=== PATIENT | male | born 1975 | race Caucasian/White ===

== ENCOUNTER 2019-08-11 22:24 | Inpatient (IN) | payer BC ==
--- NOTE | 2019-08-11 23:16 | ULT ---
Gallbladder ultrasound: Multiple grayscale images of right upper quadrant obtained according to protocol. INDICATIONS: Right upper quadrant pain. FINDINGS: Images of the gallbladder showed numerous echogenic gallstones. Thickened gallbladder wall with peric holecystic edema. Positive Beckwith's sign. Common duct upper normal caliber. There is a 2 cm echogenic focus in the right lower liver. Technologist states there is a history of h emangioma. There are no comparison studies. Hepatic cyst is identified measuring 2.0 cm. Pancreas is mostly obscured but appears unremarkable as visualized. Right kidney is imaged and appears unremarkable. IMPRESSION: 1. Cholelithiasis. Gallbladder wall is thickened and there is pericholecystic edema. Positive Beckwith' s sign. 2. Echogenic focus in the liver would be consistent with hemangioma according to history. There are n o comparison studies. Hepatic cyst is also noted.
[2019-08-12] MEDS ORDERED: Piperacillin/Tazobactam 3.375 GM VIAL ONE (00:12)
[2019-08-12] MEDS ORDERED: Glycopyrrolate 0.2 MG/ML 5 ML SYRINGE SLOW IVP SCH (00:15)
[2019-08-12] MEDS ORDERED: Ondansetron ODT 4 MG TAB SL PRN (02:23)
[2019-08-12] MEDS ORDERED: Ondansetron PF 4 MG/2 ML Vial IVP PRN ×3 (02:23→16:35)
[2019-08-12] MEDS ORDERED: Morphine 4 MG/ML VIAL SLOW IVP PRN ×2 (02:25→14:24)
[2019-08-12 02:31] VITALS: BMI 27.8
[2019-08-12] MEDS: Morphine 2 MG/ML SYRINGE SLOW IVP PRN ×2 (02:46→08:18)
[2019-08-12] MEDS ORDERED: Acetaminophen 650 MG Suppository PR PRN (10:03)
[2019-08-12] MEDS ORDERED: Ondansetron ODT 4 MG TAB PO PRN (10:03)
--- NOTE | 2019-08-12 10:11 | PDOC.HHP ---
Hospitalist HPI - History of Present Illness Abdominal pain History of Present Illness: Mr. Jefferson is a pleasant 43 year old man who reports a history of IBS x 20 years. States he typically has bouts of abdominal pain managed with hyoscyamine and his diet. He has not had an EGD or colonoscopy before. States the pain this time was more severe and associated with n/v which has never happened. His pain is usually in the epigastric region but yesterday early hours in the morning began having pain in the RUQ as well. He vomited once while en route to the hospital. No further vomiting since. He denies any changes with his stools. Reports noting darker colored urine yesterday morning. Today had trouble emptying his bladder. States he feels as if he has to urinate but only able to urinate some. Per patient bladder scan was done and showed 400 mLs, unclear how long after attempting to empty his bladder. He denies any hematuria or dysuria. Has not had issues with urination before and denies any urinary symptoms in recent days. ED Course: In the ED he had laboratory studies done which showed elevated LFTs and a tbili of 4.8. He had a RUQ US done showing cholelithiasis. Thickening of the gallbladder wall seen with pericholecystic edema and a positive Beckwith's sign. Echogenic focus seen in the liver consistent with hemangioma. A hepatic cyst was present. Consults were placed to GI and General Surgery. He was started on Zosyn. Hospitalist ROS - Review of Systems Constitutional: reports: malaise. denies: fever, chills, sweats, weakness, other Eyes: denies: pain, vision change, conjunctivae inflammation, eyelid inflammation, redness, other ENT: denies: ear pain, ear discharge, nose pain, nose discharge, nose congestion , mouth pain, mouth swelling, throat pain, throat swelling Respiratory: denies: cough, dry, shortness of breath, hemoptysis, SOB with excertion, pleuritic pain, sputum, wheezing Cardiovascular: denies: chest pain, palpitations, orthopnea, paroxysmal noc. dyspnea, edema, light headedness Gastrointestinal: reports: nausea, vomiting, abdominal pain. 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: reports: no pertinent history Gastrointestinal: reports: Irritable bowel disease Heme/Onc: reports: no pertinent history Hepatobiliary: reports: no pertinent history Psych: reports: no pertinent history Musculoskeletal: reports: no pertinent history Rheumatologic: reports: no pertinent history Infectious Disease: reports: no pertinent history ENT: reports: no pertinent history Renal/: reports: no pertinent history Endocrine: reports: no pertinent history Dermatology: reports: no pertinent history - Past Surgical History Past Surgical History: reports: no pertinent history - Family History Family History: reports: no pertinent history - Social History Smoking Status: Never smoker Alcohol: reports: Rare (Has not had any alcohol for the last 2 months.) Drugs: reports: none Living Situation: With Family Activity level: independent ambulation - Exam General Appearance: NAD Eye: PERRL, anicteric sclera ENT: normocephalic atraumatic, no oropharyngeal lesions, dry oral mucosa Neck: supple, symmetric, no JVD, no thyromegaly, no lymphadenopathy Heart: RRR, no murmur, no gallops, no rubs, normal peripheral pulses Respiratory: CTAB, no wheezes, no rales, no ronchi Gastrointestinal: soft, non-distended, normal bowel sounds, tender to palpation (in epigastric region and RUQ, + Arthur sign.) Extremities: no cyanosis, no clubbing, no edema Skin: normal turgor, no lesions, no rashes Neurological: cranial nerve grossly intact Musculoskeletal: normal tone, normal strength, no muscle wasting Psychiatric: normal affect, normal behavior, A&O x 3 Hospitalist Results - Labs Result Diagrams: 08/12/19 10:27 08/12/19 10:27 - Radiology Interpretation US - abdomen Status: report reviewed by ct Hospitalist H&P A/P - Problem (1) Cholecystitis with cholelithiasis Code(s): K80.10 - CALCULUS OF GALLBLADDER W CHRONIC CHOLECYST W/O OBSTRUCTION Status: Acute (2) Abdominal pain Code(s): R10.9 - UNSPECIFIED ABDOMINAL PAIN Status: Acute (3) History of IBS Code(s): Z87.19 - PERSONAL HISTORY OF OTHER DISEASES OF THE DIGESTIVE SYSTEM Status: Chronic (4) Hypokalemia Code(s): E87.6 - HYPOKALEMIA Status: Acute - Plan Plan: Will continue IV Abx. Repeat labs including LFTs. Replace potassium, repeat electrolytes with labs today. Continue NPO. Awaiting GI input (will likely undergo ERCP). Awaiting surgical review as well. DVT prophylaxis with mechanical SCDs. CODE STATUS: FULL. Surrogate decision maker is his Luba Jefferson. ADDENDUM: Labs have come back and are notable for a lipase of 1400. Pain worsening. Patient has pancreatitis, will remain NPO and continue aggressive IV fluids as ordered by GI. Morphine PRN for pain.
[2019-08-12] MEDS: Acetaminophen 325 MG TAB PO PRN (10:24)
[2019-08-12] MEDS ORDERED: Potassium Chloride 20 MEQ in Premix Bag 1 BAG IVPB SCH ×3 (10:30→15:45)
[2019-08-12 10:42] LABS: #Lymphocytes 0.9 thou/uL (1.20-3.40); #Monocytes 1.1 thou/uL (0.11-0.59); #Neutrophils 8.6 thou/uL (1.40-6.50); %Basophils 0.3 % (0.0-1.0); %Eosinophils 0.2 % (0.0-10.0); %Lymphocytes 8.1 % (21.0-51.0); %Monocytes 10.5 % (0.0-10.0); %Neutrophils 80.9 % (42.0-75.0); Hemoglobin 16.8 g/dL (14.0-18.0); Mean Corpuscular HGB CONC 33.5 g/dL (32.0-36.0); Mean Corpuscular Hemoglobin 28.8 pg (27.0-31.0); Mean Corpuscular Volume 85.8 fL (78.0-98.0); Mean Platelet Volume 7.4 fL (7.4-10.4); Platelet Count 191 thou/uL (130-400); RBC Distribution Width 11.8 % (11.5-14.5); Red Blood Cell (RBC) Count 5.85 mill/uL (4.70-6.10); White Blood Cell (WBC) Count 10.6 thou/uL (4.8-10.8)
[2019-08-12] MEDS ORDERED: Sodium Chloride 0.9% 1,000 ML IV SCH ×3 (10:45→13:15)
[2019-08-12 11:00] LABS: Lactic Acid 0.9 mmol/L (0.5-2.2)
[2019-08-12 11:04] LABS: ALT (SGPT) 531 U/L (8-55); AST (SGOT) 268 U/L (5-34); Albumin 4.4 g/dL (3.5-5.0); Alkaline Phosphatase 144 U/L (40-110); Bilirubin, Direct 4.2 mg/dL (0.1-0.3); Bilirubin, Total 6.8 mg/dL (0.2-1.2); Protein, Total 7.4 g/dL (6.0-8.3)
[2019-08-12 11:07] LABS: ALT (SGPT) 542 U/L (8-55); AST (SGOT) 276 U/L (5-34); Albumin 4.5 g/dL (3.5-5.0); Alkaline Phosphatase 142 U/L (40-110); Anion Gap 16 mmol/L (10-20); BUN (Urea Nitrogen) 10 mg/dL (8.9-20.6); Bilirubin, Total 6.9 mg/dL (0.2-1.2); Calc. Creatinine Clearance 121 mL/min (70-130); Calcium 9.5 mg/dL (7.8-10.44); Carbon Dioxide 23 mmol/L (22-29); Chloride 105 mmol/L (98-107); Estimated GFR-MDRD 80; Globulin 2.9 g/dL (2.4-3.5); Glucose 95 mg/dL (70-105); Magnesium 2.1 mg/dL (1.6-2.6); Potassium 3.8 mmol/L (3.5-5.1); Protein, Total 7.4 g/dL (6.0-8.3); Sodium 140 mmol/L (136-145)
[2019-08-12 11:21] LABS: Lipase 1401 U/L (8-78)
[2019-08-12] MEDS: Piperacillin/Tazobactam 3.375 GM in Sodium Chloride 0.9% 100 ML IVPB SCH ×3 (11:45→23:55)
[2019-08-12] MEDS ORDERED: Ketorolac Tromethamine 30 MG/ML VIAL IVP SCH (12:00)
[2019-08-12] MEDS ORDERED: Morphine 2 MG/ML SYRINGE SLOW IVP PRN ×2 (13:19→14:24)
[2019-08-12] MEDS ORDERED: Fentanyl 100 MCG/2 ML VIAL SLOW IVP PRN ×2 (14:35→14:36)
--- NOTE | 2019-08-12 15:24 | CON ---
DATE OF CONSULTATION: 08/12/2019 REQUESTING PHYSICIAN: Dhiraj Beckwith MD HISTORY OF PRESENT ILLNESS: This is a 43-year-old man, who presented to the emergency department yesterday with worsening epigastric right upper quadrant abdominal pain. The patient gives a history of irritable bowel syndrome spanning over 20 years with intermittent episodes of abdominal pain, which usually last 2 to 3 days. The patient was awoken yesterday with severe epigastric to right upper quadrant abdominal pain, this time associated with abdominal bloating, nausea, and vomiting. The pain is quite severe, rated at 10/10. He has never experienced pain this severe. He denies any fevers or chills. PAST MEDICAL HISTORY: Pertinent for irritable bowel syndrome with associated chronic recurrent abdominal pain. PAST SURGICAL HISTORY: He denies any previous surgeries. SOCIAL HISTORY: The patient is . He lives at home with his . 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 He denies any cigarette smoking or illicit drug abuse. Admits to occasional intake of ethanol in very moderate amount. FAMILY HISTORY: Notable for a maternal grandfather with prostate current cancer and paternal grandfather with heart disease. Maternal grandmother has essential hypertension and diabetes mellitus. Both maternal grandmother and maternal aunt had breast carcinoma. Various members of both families have irritable bowel syndrome. He does not recall any member of his extended family with history of inflammatory bowel disease. PREHOSPITALIZATION MEDICATIONS: Includes hyoscyamine, which he takes as needed for irritable bowel syndrome. ALLERGIES: THE PATIENT DENIES ANY KNOWN DRUG ALLERGIES. REVIEW OF SYSTEMS: Ten-point review of systems essentially unremarkable, except as stated in past medical history and chief complaint. PHYSICAL EXAMINATION: GENERAL: Reveals a 43-year-old normally developed man, who is otherwise coherent, interactive, and appears stated age. The patient is alert and oriented x3, appears to be in moderate acute distress secondary to abdominal pain. VITAL SIGNS: Include blood pressure is 162/85, pulse is 87, respiratory rate is 16, temperature is 98.4 degrees Fahrenheit, oxygen saturation is 96% on room air. HEENT: Reveals normocephalic and atraumatic. Pupils are equal, round, reactive to light and accommodation. He has no scleral icterus present. HEART: Reveals regular rate and rhythm. No murmurs or gallops auscultated. LUNGS: Clear to auscultation bilaterally. Breathing, regular and nonlabored. ABDOMEN: Soft with right upper quadrant tenderness to palpation. He has a positive Beckwith sign. Liver and spleen are otherwise nonpalpable below costal margin. NEUROLOGIC: Reveals no focal deficits present. LABORATORY FINDINGS: Today include a CBC with 10,600 white blood cells, hemoglobin and hematocrit 16.8 and 50.2 respectively. Platelet count is 191,000. Metabolic profile; sodium is 140, potassium is 3.8, chloride is 105, bicarb is 23, BUN is 10, creatinine is 1.02, glucose is 95, magnesium 2.1, total bilirubin is 6.9, AST and ALT are 276 and 542 respectively. Alkaline phosphatase is 142. Serum lipase is elevated at 1401. IMPRESSIONS: 1. Acute cholecystitis with cholelithiasis. 2. Probable choledocholithiasis. 3. Acute gallstone pancreatitis. 4. History of irritable bowel syndrome. RECOMMENDATIONS: The patient has been evaluated by Gastroenterology. I anticipate ERCP prior to laparoscopic cholecystectomy. Above findings and recommendations have been discussed with the patient and his at bedside. I have informed them of the risks and benefits of the laparoscopic cholecystectomy to include, but not limited to bleeding, infection, injury to bile duct or surrounding structures. The patient indicates understanding of information given. I have answered his questions. Thank you again, Dr. Beckwith, for allowing me the opportunity to participate in the care of this patient. Job ID: [id number]
[2019-08-12] MEDS ORDERED: diphenhydrAMINE 50 MG/ML VIAL IVP PRN (16:35)
[2019-08-12] MEDS ORDERED: Naloxone HCl 0.4 mg/ml Vial IV PRN (16:35)
[2019-08-12] MEDS ORDERED: diphenhydrAMINE 25 MG CAP PO PRN (16:35)
[2019-08-12] MEDS ORDERED: diphenhydrAMINE 50 MG/ML VIAL IM PRN (16:35)
[2019-08-12] MEDS ORDERED: Promethazine HCl 25 MG/ML VIAL IM PRN (16:35)
[2019-08-12] MEDS ORDERED: Communication Order-Pharmacy FS SCH (16:45)
[2019-08-12 18:11] LABS: #Lymphocytes 0.5 thou/uL (1.20-3.40); #Monocytes 0.6 thou/uL (0.11-0.59); #Neutrophils 8.1 thou/uL (1.40-6.50); %Basophils 0.1 % (0.0-1.0); %Eosinophils 0.2 % (0.0-10.0); %Lymphocytes 5.8 % (21.0-51.0); %Monocytes 6.2 % (0.0-10.0); %Neutrophils 87.7 % (42.0-75.0); Hemoglobin 15.8 g/dL (14.0-18.0); Mean Corpuscular HGB CONC 33.5 g/dL (32.0-36.0); Mean Corpuscular Hemoglobin 28.8 pg (27.0-31.0); Mean Corpuscular Volume 86.1 fL (78.0-98.0); Mean Platelet Volume 7.5 fL (7.4-10.4); Platelet Count 165 thou/uL (130-400); RBC Distribution Width 11.7 % (11.5-14.5); White Blood Cell (WBC) Count 9.2 thou/uL (4.8-10.8)
[2019-08-12 18:33] LABS: ALT (SGPT) 452 U/L (8-55); AST (SGOT) 192 U/L (5-34); Alkaline Phosphatase 138 U/L (40-110); Anion Gap 13 mmol/L (10-20); BUN (Urea Nitrogen) 11 mg/dL (8.9-20.6); Bilirubin, Total 5.7 mg/dL (0.2-1.2); Calc. Creatinine Clearance 144 mL/min (70-130); Calcium 8.7 mg/dL (7.8-10.44); Carbon Dioxide 23 mmol/L (22-29); Cardiac Risk 2.6 (Less than 4.5); Chloride 108 mmol/L (98-107); Estimated GFR-MDRD Greater than 90; Globulin 2.3 g/dL (2.4-3.5); Glucose 91 mg/dL (70-105); Potassium 3.7 mmol/L (3.5-5.1); Protein, Total 6.3 g/dL (6.0-8.3); Sodium 140 mmol/L (136-145)
[2019-08-12 18:49] LABS: Lipase 1820 U/L (8-78)
[2019-08-12] MEDS: fentaNYL Citrate/PF 2,000 MCG in Sodium Chloride 0.9% 60 ML IV PRN (19:11)
[2019-08-12] MEDS ORDERED: FLU VACC QS2019-20(6MOS UP)/PF 60 MCG/0.5 ML SYRINGE IM ONE (21:00)
--- NOTE | 2019-08-12 21:27 | CON ---
DATE OF CONSULTATION: SERVICE: GI consult. REASON FOR CONSULT: Choledocholithiasis. HISTORY OF PRESENT ILLNESS: I was contacted this morning about a consult for choledocholithiasis on Vinay Jefferson. Apparently, he was admitted from the emergency room by hospitalist and General Surgery for right upper quadrant pain and gallstones. He was found to have elevated LFTs. His initial labs yesterday at 2054 hours indicated a white count of 6, hemoglobin of 15.5, platelet count of 183, bilirubin of 4.8, AST and ALT of 310 414 and alkaline phosphatase 116 and a lipase of 32. In the emergency room, he got some Zosyn, no IV fluids and he received some morphine. He is admitted to the floor. It is unclear to me what treatment he has had in the interim time, but when I was called about that, I went ahead and had the nurse redraw labs for this morning. His lipase was 1410. AST and ALT were 276 and 542, alkaline phosphatase was 142, and bilirubin had gone up to 6.9. At that time, I called the nurse and had them give him a liter of bolus of fluid, followed by a 2nd L at 250 an hour and then 200 an hour, talked with General Surgery before this as I asked for an ERCP, we are awaiting the labs still at that time. Talking with the patient, he is in quite a bit of pain. The nurse reports he had 2 mg of morphine. He would be getting Toradol for pain. Apparently when Surgery saw him this morning, he was started on fluids at 100 an hour. Presently, the patient states he has quite a bit of pain in the epigastrium, it is nonradiating. He has had no vomiting. He has not urinated today. He reports that he has taken Librax periodically abdominal pain once a quarter. However, his notes that more recently in the past 2-3 months he has had much more frequent attacks of epigastric pain up in the back after eating. It is unclear if he thought this was gallbladder. He states he had no evaluation of this recently. His pain got very severe at 4 in the morning on Monday and then laxed, waxed up and then got really bad again at 8:00 p.m. and that is what brought him to the hospital. He denies any fever or chills. His notes he has been jaundiced for a day or so. His urine has been dark for a couple of days. In the emergency room, he showed at gallbladder wall, some thickening, pericholecystic edema and gallstones hemangioma. There was no overt measurement of the common bile duct on that study. REVIEW OF SYSTEMS: He has no fever or chills, rashes, myalgias, or arthralgias. He has had no dysuria, frequency, or urgency, at least difficulty starting a stream sometimes. CARDIOVASCULAR: Negative for chest pain, palpitations, PND, or orthopnea. GI: Negative for nausea, vomiting, melena, hematochezia, hematemesis, or weight loss. MEDICATIONS: Home medications none except for Levsin p.r.n. Present medications, 1. Tylenol. 2. Pepcid. 3. Toradol. 4. Morphine two q.4. 5. Zofran p.r.n. 6. Zosyn. 7. Normal saline at 250 an hour after a liter of bolus is already being given. PHYSICAL EXAMINATION: GENERAL: He is resting in bed. He is somewhat distraught about the fact that he is being in the hospital for a few days. 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 VITAL SIGNS: His temperature is 97.2, pulse is 55 down from 80, blood pressure 160/82. HEENT: Mildly icteric. LUNGS: Clear. HEART: Regular rate and rhythm without clicks or murmurs. ABDOMEN: Soft and nontender without rebound. He does have some guarding in the epigastrium. Bowel sounds are quiescent. He has no distention. There is no palpable hepatosplenomegaly. EXTREMITIES: No clubbing, cyanosis, or edema. LABORATORY STUDIES: In addition to those outlined above, urine showed trace ketones yesterday, trace white blood cells and red blood cells, but no bacteria. Ultrasound showed cholelithiasis, gallbladder wall thickening, pericholecystic edema. Echogenic liver focus consistent with hemangioma per Radiology. ASSESSMENT: Biliary pancreatitis. RECOMMENDATIONS: 1. Aggressive fluid resuscitation has been ordered, I started that earlier today and I looked at his consult on the computer and saw the lipase return. Goal would be 5 to 6 L of fluid in the 1st 24 hours. 2. If he does not have a Martin catheter in place and he cannot urinate, he will need one. Strict in's and out's. 3. Repeat labs this afternoon at 4 p.m. 4. At this time, ERCP is contraindicated with active pancreatitis. There is a very good chance he will pass the stone if one is present. If he fails to improve over the next 24-48 hours, he may need emergent ERCP. I have conveyed to General Surgery. Job ID: [id number]
[2019-08-12] MEDS: Sodium Chloride 0.9% 1,000 ML IV SCH ×2 (22:20→23:56)
[2019-08-12] MEDS: Famotidine/PF 20 mg/2ml Vial SLOW IVP SCH (22:20)
[2019-08-13] MEDS: Sodium Chloride 0.9% 1,000 ML IV SCH ×5 (05:13→20:45)
[2019-08-13] MEDS: Piperacillin/Tazobactam 3.375 GM in Sodium Chloride 0.9% 100 ML IVPB SCH ×4 (05:14→23:18)
[2019-08-13 06:17] LABS: #Monocytes 0.8 thou/uL (0.11-0.59); #Neutrophils 5.2 thou/uL (1.40-6.50); %Basophils 0.4 % (0.0-1.0); %Eosinophils 0.6 % (0.0-10.0); %Lymphocytes 13.8 % (21.0-51.0); %Monocytes 11.6 % (0.0-10.0); %Neutrophils 73.6 % (42.0-75.0); Hemoglobin 14.3 g/dL (14.0-18.0); Mean Corpuscular HGB CONC 33.8 g/dL (32.0-36.0); Mean Corpuscular Hemoglobin 29.3 pg (27.0-31.0); Mean Corpuscular Volume 86.5 fL (78.0-98.0); Mean Platelet Volume 7.7 fL (7.4-10.4); Platelet Count 145 thou/uL (130-400); RBC Distribution Width 11.9 % (11.5-14.5); Red Blood Cell (RBC) Count 4.88 mill/uL (4.70-6.10); White Blood Cell (WBC) Count 7.1 thou/uL (4.8-10.8)
[2019-08-13 06:33] LABS: ALT (SGPT) 337 U/L (8-55); AST (SGOT) 110 U/L (5-34); Albumin 3.5 g/dL (3.5-5.0); Alkaline Phosphatase 120 U/L (40-110); Anion Gap 13 mmol/L (10-20); BUN (Urea Nitrogen) 13 mg/dL (8.9-20.6); Bilirubin, Total 2.3 mg/dL (0.2-1.2); Calc. Creatinine Clearance 129 mL/min (70-130); Calcium 8.4 mg/dL (7.8-10.44); Carbon Dioxide 21 mmol/L (22-29); Chloride 111 mmol/L (98-107); Estimated GFR-MDRD 86; Globulin 2.4 g/dL (2.4-3.5); Glucose 80 mg/dL (70-105); Lipase 796 U/L (8-78); Protein, Total 5.9 g/dL (6.0-8.3); Sodium 141 mmol/L (136-145)
[2019-08-13] MEDS: Famotidine/PF 20 mg/2ml Vial SLOW IVP SCH ×2 (08:25→20:41)
--- NOTE | 2019-08-13 13:06 | PRG ---
DATE OF SERVICE: 08/13/2019 SUBJECTIVE: The patient is a 43-year-old male, who presented with worsening epigastric pain to the right upper quadrant. The patient has history of irritable bowel syndrome spanning over the past 20 years with intermittent abdominal pain that usually lasts 2 to 3 days. The patient's current episode started on 08/11/2019 , for which he presented to the emergency room. The patient was ultimately diagnosed with choledocholithiasis and cholecystitis. GI was consulted for assistance with possible ERCP. The patient was initially in significant pain; however, states that lately yesterday night, he all of a sudden had a sudden resolution of his pain down from a 9 to 7 to then about 2. He was initially given p.o. pain medications and was transitioned to a MOBILE SECURITY ARCHITECT pain pump. However, since the pump placement last night, he has not had to use it at all. The patient is currently n.p.o. The patient is urinating without any difficulty. He has not had a bowel movement, however, is passing gas. The patient is ambulating without difficulty. The patient has no return of nausea or vomiting, and pain is much improved, almost completely resolved. GI was consulted to evaluate the patient and based on elevated lipase and physical exam, there was concern for gallstone pancreatitis. Pt was given IVFl, started on antibiotics and placed n.p.o. with pain control for resolution of pancreatitis prior to ERCP. The patient is doing well this morning. No acute events overnight, and is eager to proceed with ERCP and cholecystectomy when appropriate. Sxs have for the most part resolved. OBJECTIVE: VITAL SIGNS: Stable and afebrile. GENERAL: Resting comfortably in bed. In no acute distress. A and O x3. In good spirits. HEENT: Normocephalic, atraumatic. Extraocular movements intact. NECK: Supple. Trachea midline. RESPIRATIONS: Symmetric chest wall expansion bilaterally. No increased work of breathing. ABDOMEN: Mildly tender to palpation over epigastric and right upper quadrant regions, however, significantly improved from previous exam. No rebound or guarding. LABORATORY DATA: Repeat labs this morning demonstrate a white blood count of 7.1, hemoglobin of 14.3, and platelets of 145. A CMP demonstrated no acute electrolyte abnormalities. Down trending bilirubin from 5.7 to 2.3. AST down from 192 to 110, ALT down from 452 to 337, alkaline phosphatase 138 to 120. Lipase 1820 down to 796. RUQ US: Thickened gallbladder wall, stones, normal CBD diameter. Positive medellin 's sign. ASSESSMENT: 1. Acute gallstone pancreatitis. 2. Cholecystitis and choledocholithiasis. 3. History of irritable bowel syndrome. PLAN: Plan will be to continue supportive care. The patient is placed n.p.o. with MOBILE SECURITY ARCHITECT for pain control p.r.n. Will continue MOBILE SECURITY ARCHITECT and transition to IV and PO pain meds as clinical course continues. The patient's LFTs and lipase have trended down. We will continue to trend these labs in the morning. GI plan states to continue with supportive care until resolution of acute pancreatitis, to then proceed with ERCP, appreciate assistance. We will plan to coordinate for cholecystectomy either concurrently or soon after ERCP as warranted. The patient was seen and evaluated by Dr. Thomas during morning rounds. The current plans were discussed with patient at bedside who voiced agreement understanding of the current plan. Job ID: [id number] [facility]
--- NOTE | 2019-08-13 16:06 | PDOC.HOSPP ---
- Subjective Encounter Date: 08/13/19 Encounter Time: 08:20 Subjective: Pt seen for followup re: acute biliary pancreatitis. Says he feels better now. Had sudden improvement in terms of pain. - Objective Vital Signs & Weight: Vital Signs (12 hours) Temp Pulse Resp BP Pulse Ox 08/13/19 16:00 99.0 F 54 L 14 160/82 H 97 08/13/19 12:00 98.4 F 58 L 14 130/80 97 08/13/19 08:00 98.6 F 60 18 125/70 95 Weight Weight 200 lb I&O: 08/12/19 08/13/19 08/14/19 06:59 06:59 06:59 Intake Total 4200 Output Total 1300 Balance 2900 Result Diagrams: 08/13/19 05:41 08/13/19 05:41 Additional Labs: labs and MARs reviewed by pr Hospitalist ROS - Review of Systems Cardiovascular: denies: chest pain, palpitations, orthopnea, paroxysmal noc. dyspnea, edema, light headedness Gastrointestinal: reports: abdominal pain. denies: nausea, vomiting, diarrhea, constipation, melena, hematochezia - Medication Medications: Active Medications Generic Name Dose Route Start Last Admin Trade Name Freq PRN Reason Stop Dose Admin Acetaminophen 650 mg 08/12/19 10:03 08/12/19 10:24 Tylenol PO 650 mg Q4H PRN Administration Headache/Fever/Mild Pain (1-3) Famotidine 20 mg 08/12/19 21:00 08/13/19 08:25 Pepcid SLOW IVP 20 mg Q12HR TANYA Administration Piperacillin Sod/Tazobactam 100 mls @ 200 mls/hr 08/12/19 12:00 08/13/19 11: 37 Sod 3.375 gm/ Sodium Chloride IVPB 100 mls Q6HR TANYA Administration Sodium Chloride 1,000 mls @ 200 mls/hr 08/12/19 17:15 08/13/19 12:13 Normal Saline 0.9% IV 1,000 mls .Q5H TANYA Administration Fentanyl Citrate 2,000 mcg/ 100 mls @ 0 mls/hr 08/12/19 16:35 08/12/19 19:11 Sodium Chloride IV 100 mls INF PRN Administration Pain As Directed Sodium Chloride 10 ml 08/12/19 09:00 08/13/19 08:25 Flush - Normal Saline IVF 10 ml Q12HR TANYA Administration - Exam General Appearance: NAD, awake alert Eye: scleral icterus ENT: normocephalic atraumatic, no oropharyngeal lesions Neck: supple, symmetric, no JVD Heart: RRR, no rubs Respiratory: CTAB, no wheezes Gastrointestinal: soft, non-distended, normal bowel sounds, no guarding, no rigidity Gastrointestinal - other findings: mild epigastric and RUQ tenderness Extremities: no clubbing Skin: no lesions Musculoskeletal: normal strength, no muscle wasting Psychiatric: normal affect, normal behavior Hosp A/P (1) Acute biliary pancreatitis Code(s): K85.10 - BILIARY ACUTE PANCREATITIS WITHOUT NECROSIS OR INFECTION Status: Acute (2) Cholecystitis with cholelithiasis Code(s): K80.10 - CALCULUS OF GALLBLADDER W CHRONIC CHOLECYST W/O OBSTRUCTION Status: Acute (3) History of IBS Code(s): Z87.19 - PERSONAL HISTORY OF OTHER DISEASES OF THE DIGESTIVE SYSTEM Status: Chronic - Plan plan discussed w/ family, continue antibiotics, out of bed/ambulate Lipase improved to 796. LFTs improving as well. Continue IV fluids. Pain medications PRN.
--- NOTE | 2019-08-13 18:54 | PRG ---
DATE OF SERVICE: 08/13/2019 SUBJECTIVE: Mr. Jefferson feels much better. He has not had to use DRY CLEANING SUPERVISOR pump today. He is voiding about every hour about 300 mL. MEDICATIONS: 1. Tylenol. 2. Benadryl. 3. Pepcid. 4. Fentanyl. 5. Zosyn. OBJECTIVE: VITAL SIGNS: Temperature is 99, T max 99, pulse 84, and blood pressure . HEENT: On exam, he is not icteric. Oropharynx, no lesions. NECK: Supple. ABDOMEN: Soft, nontender. There is no rebound. There is no guarding. EXTREMITIES: No clubbing, cyanosis, or edema. He is much more comfortable than yesterday. LABORATORY DATA: White count 7.1, hemoglobin 14.3, platelet count 145. Sodium 141, potassium 4, BUN and creatinine are 13 and 0.9. Bilirubin has dropped to 2.3 down from 6.9. AST and ALT are 110 and 337 from 276 and 542; alkaline phosphatase is 120, down from 144. Lipase is down to 196 today. ASSESSMENT: 1. Biliary pancreatitis, improving. 2. The patient has had good fluid resuscitation with drop in hemoglobin, preserved renal function. No signs of fever or sepsis. 3. Possible cholecystitis, on Zosyn. RECOMMENDATIONS: 1. Agree with plans for Laparoscopic cholecystectomy tomorrow with IOC. If the liver function test bumps before this, we would consider an ERCP prior to that, although I suspect he has passed the stone now. 2. Pancreatitis, mild, responded well to aggressive resuscitation and pain control yesterday. We will check lipase again tomorrow. Job ID: [id number]
--- NOTE | 2019-08-14 00:03 | PRG ---
DATE OF SERVICE: 08/13/2019 SUBJECTIVE: The patient was seen this evening, lying in bed and resting comfortably. He was asleep with no signs of acute distress. OBJECTIVE: VITAL SIGNS: Temperature 98.3, pulse 51, respirations 16, oxygen saturation 97% on room air, and blood pressure 150/84. GENERAL: Middle-aged male, lying in bed with no signs of acute distress. PULMONARY: Equal chest rise and fall. No signs of acute respiratory distress. ASSESSMENT: 1. Acute cholecystitis with cholelithiasis. 2. Probable choledocholithiasis, acute gallstone pancreatitis. 3. History of irritable bowel syndrome. We will continue current n.p.o. status. Plan to go to the OR in the a.m. for an intraoperative cholangiogram and lap smita. Job ID: [id number]
[2019-08-14] MEDS: fentaNYL Citrate/PF 2,000 MCG in Sodium Chloride 0.9% 60 ML IV PRN (00:23)
[2019-08-14 04:53] LABS: #Eosinphils 0.1 thou/uL (0.0-0.7); #Lymphocytes 1.2 thou/uL (1.20-3.40); #Monocytes 0.7 thou/uL (0.11-0.59); #Neutrophils 4.4 thou/uL (1.40-6.50); %Basophils 0.7 % (0.0-1.0); %Lymphocytes 18.5 % (21.0-51.0); %Monocytes 11.1 % (0.0-10.0); %Neutrophils 67.7 % (42.0-75.0); Hemoglobin 13.9 g/dL (14.0-18.0); Mean Corpuscular HGB CONC 33.5 g/dL (32.0-36.0); Mean Corpuscular Volume 86.7 fL (78.0-98.0); Mean Platelet Volume 7.2 fL (7.4-10.4); Platelet Count 144 thou/uL (130-400); RBC Distribution Width 11.5 % (11.5-14.5); White Blood Cell (WBC) Count 6.5 thou/uL (4.8-10.8)
[2019-08-14] MEDS: Piperacillin/Tazobactam 3.375 GM in Sodium Chloride 0.9% 100 ML IVPB SCH ×4 (05:03→23:06)
[2019-08-14] MEDS: Sodium Chloride 0.9% 1,000 ML IV SCH (05:04)
[2019-08-14 05:12] LABS: ALT (SGPT) 222 U/L (8-55); AST (SGOT) 49 U/L (5-34); Albumin 3.5 g/dL (3.5-5.0); Alkaline Phosphatase 102 U/L (40-110); Anion Gap 14 mmol/L (10-20); BUN (Urea Nitrogen) 9 mg/dL (8.9-20.6); Bilirubin, Total 1.4 mg/dL (0.2-1.2); Calc. Creatinine Clearance 156 mL/min (70-130); Calcium 8.3 mg/dL (7.8-10.44); Carbon Dioxide 20 mmol/L (22-29); Chloride 107 mmol/L (98-107); Estimated GFR-MDRD Greater than 90; Globulin 2.4 g/dL (2.4-3.5); Glucose 73 mg/dL (70-105); Magnesium 1.7 mg/dL (1.6-2.6); Potassium 3.6 mmol/L (3.5-5.1); Protein, Total 5.9 g/dL (6.0-8.3); Sodium 137 mmol/L (136-145)
[2019-08-14 05:13] LABS: Lipase 285 U/L (8-78); Phosphorus 2.1 mg/dL (2.3-4.7)
[2019-08-14] MEDS: Famotidine/PF 20 mg/2ml Vial SLOW IVP SCH ×2 (08:26→20:26)
[2019-08-14] MEDS ORDERED: Bupivacaine/Epinephrine 0.25% 30 ML VIAL ONE (08:28)
[2019-08-14] MEDS ORDERED: Iothalamate Meglumine 60% 50 ML VIAL FS ONE (08:28)
[2019-08-14] MEDS ORDERED: Potassium Phosphate 15 MMOL in Sodium Chloride 0.9% 250 ML 250 ML IVPB SCH (08:30)
[2019-08-14] MEDS ORDERED: Fentanyl 100 MCG/2 ML VIAL ONE ×2 (08:37→11:06)
[2019-08-14] MEDS ORDERED: Midazolam HCl 2 mg/2 ml Vial ONE (08:41)
[2019-08-14] MEDS ORDERED: Lisinopril 10 MG TAB PO SCH (09:00)
[2019-08-14] MEDS ORDERED: PACU-Morphine 4MG/ML VIAL SLOW IVP PRN (11:06)
[2019-08-14] MEDS ORDERED: Promethazine HCl 25 MG/ML VIAL SLOW IVP PRN (11:06)
[2019-08-14] MEDS ORDERED: Promethazine HCl 25 MG/ML VIAL IM PRN (11:06)
[2019-08-14] MEDS ORDERED: traMADol HCl 50 MG TAB PO PRN (11:34)
--- NOTE | 2019-08-14 13:03 | OP ---
DATE OF PROCEDURE: 08/14/2019 PREOPERATIVE DIAGNOSES: 1. Acute cholecystitis with cholelithiasis. 2. Resolved acute gallstone pancreatitis. POSTOPERATIVE DIAGNOSES: 1. Acute cholecystitis with cholelithiasis. 2. Resolved acute gallstone pancreatitis. PROCEDURE PERFORMED: Laparoscopic cholecystectomy with intraoperative cholangiogram. ANESTHESIA: General endotracheal. ESTIMATED BLOOD LOSS: 10 mL. FLUIDS GIVEN: 1200 mL crystalloids. COUNTS: Sponge and instrument counts were verified as correct x2. COMPLICATION: None apparent at the time operation. INDICATIONS FOR OPERATION: This is a 43-year-old man, presented with worsening epigastric right upper quadrant abdominal pain. Clinical radiographic examination was consistent with acute cholecystitis, cholelithiasis, as well as gallstone pancreatitis. The patient was treated medically and conservatively with bowel rest, analgesics and IV hydration. His pancreatitis had resolved. The patient was brought to the operating room today for cholecystectomy with a cholangiogram. FINDINGS: Consistent with a markedly dilated gallbladder with multiple intraluminal gall stones. The gallbladder is in the usual anatomic location. Cholangiography revealed no filling defects. We used 10 mL of Conray contrast. TOTAL FLUOROSCOPY TIME: 14 seconds. DESCRIPTION OF PROCEDURE: Informed consent was obtained from the patient, who was brought to the operating room and placed in supine position. Following general anesthesia, abdomen was sterilely prepped and draped in usual fashion. Skin below the umbilicus was infiltrated with 0.25% Marcaine with epinephrine. A small curvilinear infraumbilical incision was made using an 11-scalpel. Umbilical stalk grasped with Cynthia and elevated. Veress needle was inserted through the incision, placed in the peritoneal cavity through which the abdomen was insufflated with 3 L of CO2 gas. Intra-abdominal pressure was noted at 2 mmHg. Following abdominal insufflation, Veress needle was removed and a 5 mm trocar introduced using a Visiport under laparoscopy. Laparoscopy confirmed proper placement of the port, no injuries to underlying structures. Additional laparoscopy revealed gallbladder in the usual anatomic location, completely encased by omental adhesions. Under direct laparoscopy, a 12 mm epigastric and two 5 mm right lateral subcostal ports were placed after the overlying skin wound was infiltrated with 0.25% Marcaine with epinephrine and appropriate incision was made. The patient was placed in a reverse Trendelenburg position, rotated to his left. I introduced a [place] dissector with cautery, using this taken down omental adhesions to expose the fundus of the gallbladder. Prestige grasper introduced through the right lateral subcostal port grasping the fundus of the gallbladder, which was elevated cephalad. Omental adhesions were then taken down from remainder of the gallbladder. Second Prestige grasper introduced through the right medial subcostal port grasping the Meghann pouch, which was retracted laterally. The cystic duct was dissected free from surrounding structures at the triangle of Calot. A duct was then secured with one clip applied at the junction of the cystic duct and gallbladder. I introduced the cholangiocatheter in the right upper quadrant. I made an opening in the cystic duct proximal to the securing clip. This was accomplished using EndoShear. The cholangiocatheter was flushed first with saline and then was inserted into the cystic duct lumen securing this with a single clip. I flushed easily with the saline. Using 10 mL of Conray contrast, cholangiogram was completed revealing no filling defects. Total fluoroscopy time was 14 seconds. The securing clip was removed and the catheter was removed from the peritoneal cavity. Cystic duct was then divided between clips, applying 2 clips proximally. Cystic artery dissected free from surrounding structures, divided between clips, applying 2 clips proximally and 1 clip at the junction of the cystic artery and gallbladder. The gallbladder itself was removed from the liver bed and passed off the operative field for pathology. Gallbladder fossa was oozing off a minor amount of venous blood. Hemostasis was readily achieved using Alexus. Finding no other pathology, laparoscopy was terminated. Fascia of the epigastric port was closed using 0 Vicryl suture and Endoclosure device on the laparoscopy. Abdomen was desufflated. All ports and instruments removed and accounted for. Skin incision was closed using 4-0 Monocryl suture in subcuticular fashion. Dermabond was applied over incisional closure. The patient tolerated the operation without any apparent complication and was returned to recovery room in satisfactory condition. Job ID: [id number]
[2019-08-14] MEDS: traMADol HCl 50 MG TAB PO PRN ×2 (13:11→20:27)
--- NOTE | 2019-08-14 13:49 | PDOC.HOSPP ---
- Subjective Encounter Date: 08/14/19 Encounter Time: 13:47 Subjective: Pt seen for followup re: acute biliary pancreatitis. feels better. - Objective Vital Signs & Weight: Vital Signs (12 hours) Temp Pulse Resp BP Pulse Ox 08/14/19 11:45 97.8 F 64 18 133/81 97 08/14/19 05:33 98.5 F 64 18 161/75 H 95 Weight Weight 200 lb I&O: 08/13/19 08/14/19 08/15/19 06:59 06:59 06:59 Intake Total 4200 4025 Output Total 1300 2950 Balance 2900 1075 Result Diagrams: 08/14/19 04:42 08/14/19 04:42 Additional Labs: Labs and MARs reviewed by or Hospitalist ROS - Review of Systems Gastrointestinal: reports: nausea. denies: vomiting, abdominal pain, diarrhea, constipation, melena, hematochezia Genitourinary: denies: dysuria, frequency, incontinence, hematuria, retention - Medication Medications: Active Medications Generic Name Dose Route Start Last Admin Trade Name Freq PRN Reason Stop Dose Admin Acetaminophen 650 mg 08/12/19 10:03 08/12/19 10:24 Tylenol PO 650 mg Q4H PRN Administration Headache/Fever/Mild Pain (1-3) Famotidine 20 mg 08/12/19 21:00 08/14/19 08:26 Pepcid SLOW IVP Not Given Q12HR TANYA Piperacillin Sod/Tazobactam 100 mls @ 200 mls/hr 08/12/19 12:00 08/14/19 11: 52 Sod 3.375 gm/ Sodium Chloride IVPB 100 mls Q6HR TANYA Administration Potassium Phosphate 15 mmol/ 255 mls @ 63.75 mls/hr 08/14/19 08:30 08/14/19 12:32 Sodium Chloride IVPB 08/14/19 17:00 255 mls NOW TANYA Administration Ondansetron HCl 4 mg 08/12/19 16:35 08/14/19 13:19 Zofran IVP 4 mg Q6H PRN Administration Nausea/Vomiting Sodium Chloride 10 ml 08/12/19 09:00 08/14/19 08:26 Flush - Normal Saline IVF Not Given Q12HR TANYA Tramadol HCl 100 mg 08/14/19 11:34 08/14/19 13:11 Ultram PO 100 mg Q6H PRN Administration Severe Pain (7-10) - Exam General Appearance: NAD Eye: anicteric sclera ENT: no oropharyngeal lesions Neck: supple, no JVD Heart: RRR Respiratory: CTAB Gastrointestinal: soft, non-tender Skin - other findings: surgical sites clean Neurological: no weakness Psychiatric: normal affect Hosp A/P (1) Acute biliary pancreatitis Code(s): K85.10 - BILIARY ACUTE PANCREATITIS WITHOUT NECROSIS OR INFECTION Status: Acute (2) Cholecystitis with cholelithiasis Code(s): K80.10 - CALCULUS OF GALLBLADDER W CHRONIC CHOLECYST W/O OBSTRUCTION Status: Acute (3) History of IBS Code(s): Z87.19 - PERSONAL HISTORY OF OTHER DISEASES OF THE DIGESTIVE SYSTEM Status: Chronic - Plan plan discussed w/ family, out of bed/ambulate s/p lap smita. Lipase improved to 285. Pain medications PRN.
--- NOTE | 2019-08-14 15:40 | RAD ---
OPERATIVE CHOLANGIOGRAM TWO VIEWS: 08/14/19 HISTORY: Intraoperative films. These show filling of a nondilated common duct with emptying into the duodenum. No filling defects. IMPRESSION: Unremarkable operative cholangiogram. POS: TPC
--- NOTE | 2019-08-15 01:08 | PRG ---
DATE OF SERVICE: 08/14/2019 SUBJECTIVE: The patient was seen this evening during rounds. He was sitting up in bed with no signs of acute distress. He is postoperative day zero after laparoscopic cholecystectomy with intraoperative cholangiogram. The patient had no complaints at the time of my evaluation, he was tolerating a full liquid diet. OBJECTIVE: VITAL SIGNS: Temperature 98.2, pulse 49, respirations 16, oxygen saturation 95% on room air, blood pressure 153/86. GENERAL: Well-appearing middle-aged male, sitting up in bed with no signs of acute distress. PULMONARY: Equal chest rise and fall, clear breath sounds bilaterally. No signs of acute respiratory distress. CARDIAC: Regular rate and rhythm. No murmurs, gallops, or rubs. GI: Abdomen is soft, appropriately tender to palpation and nondistended. Surgical wounds are clean, dry, and intact. No signs of infection. EXTREMITIES: 2+ pulses in all extremities. Gross motor and sensation are intact. ASSESSMENT: 1. Status post laparoscopic cholecystectomy with intraoperative cholangiogram secondary to choledocholithiasis and cholecystitis. 2. Acute biliary pancreatitis. 3. History of irritable bowel syndrome. PLAN: Continue current full liquid diet and advance as tolerated. Continue current pain regimen. Did discuss with the patient activity level at the time of discharge along with followup plans with General Surgery in clinic. We will repeat blood work in the morning. Continue ambulating as much as possible when not asleep. The patient will likely be able to be discharged home. Job ID: [id number]
[2019-08-15 04:37] LABS: #Monocytes 1.1 thou/uL (0.11-0.59); #Neutrophils 6.9 thou/uL (1.40-6.50); %Basophils 0.1 % (0.0-1.0); %Eosinophils 0.2 % (0.0-10.0); %Lymphocytes 11.3 % (21.0-51.0); %Monocytes 12.3 % (0.0-10.0); %Neutrophils 76.2 % (42.0-75.0); Hemoglobin 14.2 g/dL (14.0-18.0); Mean Corpuscular HGB CONC 34.7 g/dL (32.0-36.0); Mean Corpuscular Hemoglobin 28.9 pg (27.0-31.0); Mean Corpuscular Volume 83.4 fL (78.0-98.0); Mean Platelet Volume 7.7 fL (7.4-10.4); Platelet Count 156 thou/uL (130-400); RBC Distribution Width 11.5 % (11.5-14.5); Red Blood Cell (RBC) Count 4.91 mill/uL (4.70-6.10)
[2019-08-15 04:52] LABS: ALT (SGPT) 172 U/L (8-55); AST (SGOT) 41 U/L (5-34); Albumin 3.6 g/dL (3.5-5.0); Alkaline Phosphatase 94 U/L (40-110); Anion Gap 12 mmol/L (10-20); BUN (Urea Nitrogen) 6 mg/dL (8.9-20.6); Calc. Creatinine Clearance 142 mL/min (70-130); Calcium 8.7 mg/dL (7.8-10.44); Carbon Dioxide 24 mmol/L (22-29); Chloride 104 mmol/L (98-107); Estimated GFR-MDRD Greater than 90; Globulin 2.6 g/dL (2.4-3.5); Glucose 111 mg/dL (70-105); Lipase 151 U/L (8-78); Magnesium 1.7 mg/dL (1.6-2.6); Phosphorus 3.3 mg/dL (2.3-4.7); Potassium 3.7 mmol/L (3.5-5.1); Protein, Total 6.2 g/dL (6.0-8.3); Sodium 136 mmol/L (136-145)
[2019-08-15] MEDS: Piperacillin/Tazobactam 3.375 GM in Sodium Chloride 0.9% 100 ML IVPB SCH (05:14)
[2019-08-15] MEDS: Acetaminophen 325 MG TAB PO PRN (05:17)
[2019-08-15] MEDS ORDERED: Senokot S 8.6-50 MG TAB PO SCH (09:00)
[2019-08-15] MEDS ORDERED: Polyethylene Glycol 3350 17 GM Packet PO SCH (09:00)
--- NOTE | 2019-08-15 10:54 | PRG ---
DATE OF SERVICE: 08/15/2019 SUBJECTIVE: The patient was seen and examined this morning on rounds. The patient was sitting up in bed, had finished breakfast, tolerating p.o. well with no nausea and no vomiting. Pain well controlled with p.o. Tylenol. Ambulating well without difficulty. Voiding without difficulty. Passing gas; however, no bowel movement. The patient was eager for discharge. The patient is currently postoperative day #1 status post laparoscopic cholecystectomy with intraoperative cholangiogram. OBJECTIVE: VITAL SIGNS: Temperature 97.8, heart rate 55, respirations 14, O2 saturation 97 on room air, and blood pressure 144/87. GENERAL: Well-appearing male, sitting up in bed, in no acute signs of distress, eager for discharge. PULMONARY: Symmetric chest wall expansion. No increased work of breathing or signs of acute respiratory distress. HEENT: Extraocular movements intact. NECK: Supple. Trachea midline. GI: Abdomen is soft, mildly tender around the incision sites. No rebound or guarding. Surgical wounds are clean, dry, and intact. No acute signs of infection. LABORATORY VALUES: White blood cell count of 9.0, hemoglobin 14.2, and platelets 156. Total bilirubin 1.0, AST 41, ALT 172, alkaline phosphatase 94, and lipase 151. ASSESSMENT: 1. Status post laparoscopic cholecystectomy with intraoperative cholangiogram secondary to choledocholithiasis and cholecystitis, postoperative day #1. 2. Acute biliary pancreatitis, resolved. 3. History of irritable bowel syndrome. PLAN: The patient was advanced to a full diet, tolerating well with no nausea and no vomiting. Pain well controlled with p.o. Tylenol and tramadol p.r.n. Discussed with the patient appropriate activity level upon discharge including not lifting more than 15 pounds until following up in [address] Thomas. The patient is ambulating well without difficulty. The patient was started on a bowel regimen. GI prophylaxis discontinued. Antibiotics discontinued. The patient's labs returned this morning with downtrending LFTs, downtrending lipase, and no significant elevation of white blood cell count. From a surgical standpoint, he is ready for discharge to follow up in 2 weeks. Return precautions given. The patient was seen and examined by Dr. Thomas on morning rounds. The above plan was discussed with the patient including activity modifications and to follow up within 2 weeks. The patient was voiced understanding and agreements of the plan and was eager for discharge. Job ID: [id number] MTDD
[2019-08-15 11:54] VITALS: BP 131/82; TEMP 98.1
--- NOTE | 2019-08-16 01:45 | DIS ---
DATE OF ADMISSION: 08/12/2019 DATE OF DISCHARGE: 08/15/2019 PRIMARY CARE PROVIDER: Dr. Yessenia Solis. DISCHARGE DIAGNOSES: 1. Acute biliary pancreatitis. 2. Cholecystitis with cholelithiasis. CONDITION OF PATIENT ON THE DAY OF DISCHARGE: Stable. I assessed Mr. Jefferson on the day of discharge. He denies any chest pain or shortness of breath. Vital signs are stable. S1 and S2 are heard, regular. Lungs are clear to auscultation bilaterally. FOLLOWUP APPOINTMENTS: The patient is advised to follow up with General Surgery, Dr. Thomas, on August 27, 2019, and with primary care provider in 3 to 5 days time. DISCHARGE MEDICATIONS: 1. Hyoscyamine 0.125 mg sublingually every 6 hours as needed. 2. Tramadol 50 mg every 6 hours as needed. CONSULTATIONS DURING THIS HOSPITALIZATION: 1. Gastroenterology, Dr. Hernandez. 2. General Surgery, Dr. Thomas. HOSPITAL COURSE: Mr. Jefferson is a pleasant 43-year-old gentleman, who was admitted to [facility] on August 12, 2019, for abdominal pain. Please refer to Ms. Araujo's history and physical note dated August 12, 2019, for further details. He was found to be in acute biliary pancreatitis. Abdominal ultrasound done prior to admission showed cholelithiasis and thickening of gallbladder wall. He was seen by Gastroenterology and General Surgery Services. He also had echogenic focus in the liver, which would be consistent with hemangioma. Hepatic cyst was also noted on the ultrasound. He was treated with pain medications and intravenous fluids. His pain improved. His LFTs also improved. His lipase improved as well. On August 14, he underwent laparoscopic cholecystectomy. He continued to improve clinically and is being discharged home in a stable condition. On the day of discharge, he has white count of 9000, hemoglobin 14.2, platelet count 156,000, normal electrolytes, normal creatinine, normal total bilirubin of 1.0, AST trending down to 41, ALT trending down to 172, and normal alkaline phosphatase. Lipase trended down to 151. He was evaluated by General Surgery Service on August 15, 2019, and has been cleared for discharge. DISCHARGE DESTINATION: Home. TIME SPENT: Total amount of time spent coordinating this discharge: 18 minutes. Job ID: [id number]
== END 2019-08-15 12:11 | disposition home or self-care (01) | DRG 417 ==
LOC: ERS 22:24 → SURG B 08-12 01:03
PROVIDERS: ADMIT Hospitalist; ATTEND Hospitalist
PROC: 3E02340 Introduction of Influenza Vaccine into Muscle, Percutaneous Approach (ICD-10-PCS; 2019-08-12)
PROC: 0FT44ZZ Resection of Gallbladder, Percutaneous Endoscopic Approach (ICD-10-PCS; principal; 2019-08-15)
PROC: BF100ZZ Fluoroscopy of Bile Ducts using High Osmolar Contrast (ICD-10-PCS; 2019-08-15)
DX: K80.12 Calculus of gallbladder with acute and chronic cholecystitis without obstruction (principal); K85.10 Biliary acute pancreatitis without necrosis or infection; D18.03 Hemangioma of intra-abdominal structures; E87.6 Hypokalemia; Z87.19 Personal history of other diseases of the digestive system; Z23 Encounter for immunization
CPT/HCPCS: 36415; 47532; 76705; 80053; 80061; 82248; 83605; 83690; 83735; 84100; 85025; 88304; 96365; 96375; J0690; J1885; J2250; J2270; J2405; J2543; J3010; J3480; J3490; J7050; S0028